=== PATIENT | female | born 1995 | race Hispanic/Latino ===

== ENCOUNTER 2016-12-26 22:37 | Emergency (ER) | payer OTHER ==
[~2016-12-26] VITALS: Ht 157.5 cm; Wt 49.0 kg
[2016-12-26] MEDS ORDERED: diphenhydrAMINE 50 MG/ML INJ (BENADRYL) IVP ONE (23:15)
[2016-12-26] MEDS ORDERED: FAMOTIDINE 20MG/2ML IV (PEPCID) IVP ONE (23:15)
[2016-12-26] MEDS ORDERED: methylPREDNISolone 125 MG (Solu-MEDROL) VIAL IVP ONE (23:15)
[2016-12-27] MEDS ORDERED: PRD20T PO (00:12)
--- NOTE | 2016-12-27 00:12 | ED General ---
General Chief Complaint: Allergic Reaction Stated Complaint: ALLERGIC REACTION Nursing Triage Note: facial swelling/itching x1hr /p taking strepsils. pt reports taking lori after reaction started without relief. pt denies throat swelling/difficulty breathing Nursing Sepsis Screen: No Definite Risk Source of Information: Patient Exam Limitations: No Limitations History of Present Illness Time Seen by Provider: 23:05 Initial Comments This 21-year-old young lady presents to the emergency room with allergic reaction after taking Flurbiprofen. She has a known NSAID allergy but did not realize this medication was an NSAID. It is a product obtained from [email or web address]. She developed facial swelling but denies any shortness of breath, tongue swelling, or throat tightening. She took Lori at home and is already improving. The NSAID ingestion was added approximately 21:30 and the Lori dose was at 22:00. Allergies and Home Medications Allergies Coded Allergies: NSAIDS (Non-Steroidal Anti-Inflamma (Verified Allergy, Severe, ANAPHYLAXIS , 12/27/16) aspirin (Verified Allergy, Unknown, 12/26/16) Uncoded Allergies: strepsils (Allergy, Unknown, 12/26/16) facial swelling Home Medications Prednisone 20 Mg Tab #3 20 MG PO DAILY Prescribed by: MARY MCCULLOUGH on 12/27/16 0012 Constitutional: no symptoms reported EENTM: see HPI Respiratory: no symptoms reported Cardiovascular: no symptoms reported Gastrointestinal: no symptoms reported Genitourinary: no symptoms reported Musculoskeletal: no symptoms reported Skin: see HPI Psychiatric/Neurological: No Symptoms Reported Hematologic/Lymphatic: No Symptoms Reported Immunological/Allergic: see HPI Past Cdzpnjq-Iilcat-Myoaph Hx Patient Social History Alcohol Use: Denies Use Recreational Drug Use: No Smoking Status: Never a Smoker 2nd Hand Smoke Exposure: No Recent Foreign Travel: No Contact w/Someone Who Travel: No Recent Infectious Disease Expo: No Recent Hopitalizations: No Immunizations Up To Date Tetanus Booster (TDap): Less than 5yrs PED Vaccines UTD: Yes Seasonal Allergies Seasonal Allergies: No Surgeries HX Surgeries: No Respiratory Hx Respiratory Disorders: No Cardiovascular Hx Cardiac Disorders: No Neurological Hx Neurological Disorders: No Reproductive System : No Hx Reproductive Disorders: No Genitourinary Hx Genitourinary Disorders: No Gastrointestinal Hx Gastrointestinal Disorders: No Musculoskeletal Hx Musculoskeletal Disorders: No Endocrine Hx Endocrine Disorders: No HEENT HX ENT Disorders: No Cancer Hx Cancer: No Psychosocial Hx Psychiatric Problems: No Integumentary HX Skin/Integumentary Disorder: No Blood Transfusions Hx Blood Disorders: No Physical Exam Vital Signs Vital Sign - Last 12Hours 12/26/16 22:49 Temp 98.0 Pulse 98 Resp 16 B/P 135/83 Pulse Ox 97 O2 Delivery Room Air Capillary Refill : Less Than 3 Seconds General Appearance: No Apparent Distress WD/WN HEENT: PERRL/EOMI Pharynx Normal Other (diffuse facial swelling. No swelling of the tongue or pharynx.) Neck: Normal Inspection Respiratory: Lungs Clear Normal Breath Sounds No Accessory Muscle Use No Respiratory Distress Cardiovascular: Regular Rate, Rhythm No Edema No Murmur Extremity: Normal Inspection Neurologic/Psychiatric: Alert Oriented x3 No Motor/Sensory Deficits Normal Mood/Affect route vending machine servicer II-XII Norm as Tested Skin: Normal Color Warm/Dry Progress/Results/Core Measures Results/Orders My Orders Orders-MARY GARCIA MD Famotidine Injection (Pepcid Injection) (12/26/16 23:15) Methylprednisolone Sod Succ (Solu-Medrol (12/26/16 23:15) Diphenhydramine Injection (Benadryl Inje (12/26/16 23:15) Saline Lock/Iv-Start (12/26/16 23:15) Medications Given in ED Current Medications Medications Dose Ordered Sig/Zora Route Start Time Stop Time Status Last Admin Dose Admin Diphenhydramine HCl 25 mg ONCE ONCE IVP 12/26/16 23:15 12/26/16 23:17 DC 12/26/16 23:25 25 MG Famotidine 20 mg ONCE ONCE IVP 12/26/16 23:15 12/26/16 23:17 DC 12/26/16 23:25 20 MG Methylprednisolone Sodium Succinate 125 mg ONCE ONCE IVP 12/26/16 23:15 12/26/16 23:17 DC 12/26/16 23:25 125 MG Vital Signs/I&O Vital Sign - Last 12Hours 12/26/16 12/27/16 22:49 00:15 Temp 98.0 Pulse 98 89 Resp 16 18 B/P 135/83 Pulse Ox 97 100 O2 Delivery Room Air Blood Pressure Mean: 100 Progress Note : Progress Note Patient received IV Solu-Medrol, Pepcid, and Benadryl. She continued to have gradual improvement of her symptoms. She felt comfortable returning home. Departure Impression Impression: Primary Impression: Allergy to NSAIDs Disposition: HOME, SELF-CARE Condition: Improved Departure-Patient Inst. Decision time for Depature: 00:00 Referrals: NO,LOCAL PHYSICIAN (PCP/Family) Primary Care Physician Patient Instructions: Drug Allergy Add. Discharge Instructions: Avoid any further exposure to NSAIDs (nonsteroidal anti-inflammatories). Take prednisone as prescribed and continue taking Lori per package instructions for the next couple of days. Keep Benadryl (diphenhydramine) on hand and take 50 mg immediately if you start developing worsening reaction. Return to the emergency room or call 911 immediately if you develop swelling of the throat or tongue, or have difficulty breathing. All discharge instructions reviewed with patient and/or family. Voiced understanding. Scripts Prednisone 20 Mg Tab20 Mg PO DAILY #3 TAB Prov:MARY GARCIA MD 12/27/16 MARY GARCIA MD Dec 27, 2016 00:12
[2016-12-27 00:15] VITALS: BP 107/63
== END 2016-12-27 00:17 | disposition home or self-care (01) ==
LOC: ER 22:40
DX: R22.0 Localized swelling, mass and lump, head (principal); T39.315A Adverse effect of propionic acid derivatives, initial encounter
CPT/HCPCS: 96374; 96375